=== PATIENT | female | born 1965 | race Caucasian/White ===

== ENCOUNTER 2016-09-10 19:03 | Emergency (ER) | payer OTHER ==
[2016-09-10 19:33] VITALS: BP 126/91; PULSE 88; RESP 16; O2SAT 99
[2016-09-10 20:22] LABS: BASOPHILS % (AUTO) 0.3 % (0-3); MONOCYTES % (AUTO) 7.2 % (4-12); Mean Corpuscular Volume 91.1 fL (81-100); NEUTROPHILS % (AUTO) 58.4 % (40-74); Platelet Count 233 bil/L (150-400)
[2016-09-10 20:46] LABS: Magnesium 1.9 mg/dL (1.6-2.6)
--- NOTE | 2016-09-10 21:02 | ED.REPORT ---
HPI-Abd Pain F 40 and Over Date of Service September 10, 2016 ED Provider: Dr. Balbuena Pt is a healthy 51 y/o female presenting to the ED c/o diffuse right-sided burning abdominal pain onset about 2 days ago. Her pain seems to be relieved by eating. Pt c/o associated nausea. She denies any rash, vomiting, fever, cough, change in appetite, diarrhea, constipation, acid reflux. She has had similar episodes previously that her PCP thought may be related to abdominal muscle spasms. She had a cholecystectomy about 10 years ago. She takes Protonix for GERD and has not missed any doses recently and does not believe this pain is similar to acid reflux. Nursing Notes Stated Complaint: BURNING SENSATION RIGHT SIDE STOMACH,NAUSEA,2 DAYS Chief Complaint: Female Abdominal Pain Nursing Notes Reviewed: Yes Allergies: Coded Allergies: No Known Allergies (Unverified , 09/10/16) General Time Seen by MD: 21:01 Chief Complaint Abdominal pain Hx Obtained From: Patient Arrived By: Walk-in Sudden in Onset?: No Onset Occurred: 2 days ago Symptom Duration: Since onset Progression since Onset: Intermittent Location: : RLQ: RUQ Quality: Burning, Painful Radiation: : Does not radiate Severity: Current: Mild Severity: Maximum: Moderate Relieved by: Eating Similar Sx Previous: No Past Medical History Past Medical History GERD Past Surgical History Cholecystectomy Smoking History Unknown if Ever Smoker Ambulatory Status Independent Review of Systems Denies change in appetite Constitutional: Denies: Chills, Fever Respiratory: Denies: Non-productive cough GI: Reports: Abdominal pain, Nausea, Denies: Anorexia, Constipation, Diarrhea, Vomiting Complete sys rev & neg: except as marked. Physical Exam Vital Signs Vital Signs (First) Date Time Temp Pulse Resp B/P Pulse Ox O2 Delivery O2 Flow Rate FiO2 09/10/16 19:33 37.4 88 16 126/91 99 Initial VS: Reviewed, Vital signs normal Head / Eyes: Atraumatic, Normocephalic, PERRL Neck: Supple, Full range of motion Extremities: Vascular intact, Neuro intact, No swelling, No tenderness Neurologic: Alert, Oriented, Nonfocal Psychiatric: Mood/affect normal, Behavior normal, Normal thought content General/Constitutional: Awake, Alert, No acute distress, Well appearing, Cooperative, Not toxic appearing Respiratory / Chest: Breath sounds NL, Breath sounds = bilat, No respiratory distress, No rales, No rhonchi, No wheezing, No retractions, No stridor Cardiovascular: Heart rate NL, Regular rhythm, Heart sounds NL, No murmurs, Peripheral circulation NL Abdomen: Atraumatic, Soft, No guarding, No rebound, BS normoactive, No distention Mild tenderness over the right mid abdomen No rash Back: Full range of motion, Painless range of motion ENT: Atraumatic, Airway patent, Mucous membranes moist, Pharynx NL Skin: No rash, Warm, Dry, Intact Interpretation & Diagnostics Lab Results Interpretation Result Diagram: 09/10/16 0810 09/10/16 0810 Test 09/10/16 08:10 09/10/16 20:19 White Blood Count 9.0th/mm3 (3.8-10.1) Red Blood Count 4.38mil/mm3 (3.90-5.20) Hemoglobin 14.0g/dL (12.0-15.6) Hematocrit 39.9% (35.0-46.0) Mean Corpuscular Volume 91.1fL (81-100) Mean Corpuscular Hemoglobin 32.0pg (27.0-35.0) Mean Corpuscular Hemoglobin Concent 35.1% (32.0-37.0) Red Cell Distribution Width 12.2% (12.3-15.4) Platelet Count 233bil/L (150-400) Neutrophils (%) (Auto) 58.4% (40-74) Lymphocytes (%) (Auto) 31.8% (14-46) Monocytes (%) (Auto) 7.2% (4-12) Eosinophils (%) (Auto) 2.0% (0-5) Basophils (%) (Auto) 0.3% (0-3) Sodium Level 136mEq/L (134-144) Potassium Level 3.7mEq/L (3.5-5.2) Chloride Level 97mEq/L (97-108) Carbon Dioxide Level 24mmol/L (18-29) Blood Urea Nitrogen 18mg/dL (6-24) Creatinine 0.64mg/dL (0.57-1.00) Estimat Glomerular Filtration Rate 140mL/min (>59) Glucose Level 92mg/dL (60-99) Calcium Level 10.0mg/dL (8.5-10.1) Magnesium Level 1.9mg/dL (1.6-2.6) Total Bilirubin 0.5mg/dL (0.0-1.2) Aspartate Amino Transf (AST/SGOT) 36U/L (0-50) Alanine Aminotransferase (ALT/SGPT) 50U/L (0-32) Alkaline Phosphatase 84U/L (25-150) Total Protein 8.0g/dL (6.4-8.4) Albumin 4.3g/dL (3.4-5.0) Lipase 28U/L (13-60) Urine Color Yellow (YELLOW) Urine Appearance Hazy (CLEAR,HAZY) Urine pH 5.0 (5.0-8.0) Urine Specific [place] 1.025 (1.003-1.035) Urine Protein Negativemg/dL (NEG,TRACE) Urine Glucose (UA) Negativemg/dL (NEGATIVE) Urine Ketones Negativemg/dL (NEGATIVE) Urine Occult Blood Moderate (NEGATIVE) Urine Nitrite Negative (NEGATIVE) Urine Bilirubin Negative (NEGATIVE) Urine Urobilinogen Normalmg/dL (NORMAL) Urine Leukocyte Esterase Negative (NEGATIVE) Urine RBC 0-2/hpf (0-2) Urine WBC 0-5/hpf (0-5) Urine Epithelial Cells Few/hpf (NONE-MOD) Urine Crystals Oxalic acid crystals (NONE Urine Bacteria Few/hpf (NONE-FEW) Urine Hyaline Casts None/lpf (NONE) Urine Granular Casts None seen (NONE SEEN) Urine Waxy Casts None seen (NONE SEEN) Urine Red Blood Cell Casts None seen (NONE SEEN) Urine White Blood Cell Casts None seen (NONE SEEN) Urine Mucus None seen (None Seen) Urine Trichomonas None seen (NONE SEEN) Urine Yeast None (NONE SEEN) Urinalysis Comment None Urine Culture Reflexed Not indicated X-Ray Abdominal Interpretation Moderate stool in the right transverse colon Study: 2 view Interpretation / Wet Read by: Wet read ED physician Re-Eval/Medical Decision Med Decision/Clinical Course 51-year-old presents with burning abdominal pain in the right upper quadrant. She is post cholecystectomy. She does have intermittent heartburn but is on Protonix. There is no skin rash at this point to suggest shingles, but I would not be surprised to see that develop over the next day or two. Her pain seems to be fairly superficial. Labs are basically unremarkable. No indication for advanced imaging. Urine is negative. Single view x-ray shows more than moderate stool in the right colon, and I suspect that her bowel pattern is a chronic low-grade constipation, culminating now in these symptoms. Home with citrate of magnesium and Metamucil to follow. Follow-up with PCP. Re-Evaluation/Progress : Time of Eval: 22:28 Re-Evaluation/Progress Note: Pt rechecked. Informed pt of plan for treatment. Pt understands and agrees with plan for treatment. F/U instructions and RTER warnings given. All questions addressed. Counseled Regarding: Diagnosis, Lab results, Need for follow-up, When/why to return to ED Discharge & Departure Primary Impression: Abdominal pain Abdominal location: unspecified location Qualified Code: R10.9 - Unspecified abdominal pain Disposition: Home Discharge Condition All VS Reviewed: Yes Condition: Stable Patient Instructions: Acute Abdominal Pain (ED) Additional Instructions: There is a moderate amount of solid stool over to the right colon, as we discussed. It would be useful to clean that out and see if that influences your symptoms. Ongoing, I suggest adding Metamucil or similar to your regimen for the indefinite future. Two capsules of generic psyllium twice daily with 12 ounces of fluid each time would be helpful for the long run. Follow up with your doctor in the office. You may follow-up at residency clinic if you need a local physician. Return if worsening pain despite treatment. He may expect some cramps with the magnesium citrate, and then some significant bowel movements later. Referrals: NOPCP (PCP) Scribe Attestation Portions of this note were transcribed by Jevon Morales. I, Dr. Balbuena personally performed the history, physical exam and medical decision-making; I reviewed and confirmed the accuracy of the information in the transcribed note. Signed by Gin Sharma, 09/10/162109 Jesus Balbuena MD September 10, 2016 21:02 JEVON MORALES September 10, 2016 21:10 Corrina Pena September 10, 2016 22:52
[2016-09-10 21:08] LABS: APPEARANCE,URINE HAZY (CLEAR,HAZY); COLOR,URINE YELLOW (YELLOW); OCCULT BLOOD,URINE MODERATE (NEGATIVE); UROBILINOGEN,URINE NORMAL (NORMAL)
[2016-09-10 23:00] VITALS: BP 126/91; PULSE 88; PULSE 89; RESP 16; O2SAT 100; O2SAT 99
--- NOTE | 2016-09-11 09:03 | DRSVH ---
PROCEDURE: X-RAY ABDOMEN, ONE VIEW ([id number]) INDICATIONS: pain right mid abdomen TECHNIQUE: One view of the abdomen acquired. COMPARISON: None. FINDINGS: Surgical changes and devices: Cholecystectomy clips and a single surgical clip projects over the righ t inferior hemipelvis. Bowel: Bowel gas pattern is normal. Soft tissues: No suspicious abdominal calcifications. Visualized solid organ contours appear normal in size. Bones: No suspicious bony lesions. IMPRESSION: No source for abdominal pain identified. Dictated by: Kolton [facility] Interpreted: Kassandra Sparks MD on 09/11/2016 at 8:57 Transcribed by: JHONATHAN on 09/11/2016 at 9:02 Approved by: Kassandra Sparks M.D. on 09/11/2016 at 11:57
== END 2016-09-10 23:01 | disposition home or self-care (01) ==
LOC: SED 19:03
DX: R10.11 Right upper quadrant pain (principal); R11.0 Nausea; K21.9 Gastro-esophageal reflux disease without esophagitis; Z90.49 Acquired absence of other specified parts of digestive tract

== ENCOUNTER 2016-11-16 07:56 | Day surgery (SDC) | payer OTHER ==
[~2016-11-16] VITALS: Ht 162.6 cm; Wt 90.7 kg
[~2016-11-16 07:56] MED LIST: 0.9% Sodium Chloride 1,000 ML IV SCH; DICY10CA56 PO; LEVO100T97 PO; OXYB5TAB PO; PANT40TA2 PO; Sodium Chloride LOK Flush 10 mL Syringe IV PRN; fentaNYL-PF 50 mCg/mL 2 mL Inj IVPUSH PRN
[2016-11-16 08:14] VITALS: BP 108/71; PULSE 63; RESP 16; O2SAT 98
[2016-11-16] MEDS ORDERED: Ondansetron 2 mg/mL 2 mL Inj ONE (08:26)
[2016-11-16] MEDS ORDERED: fentaNYL-PF 50 mCg/mL 2 mL Inj IVPUSH ONE (09:00)
[2016-11-16] MEDS ORDERED: Midazolam 5 mg/mL 10 mL Inj IV ONE (09:00)
[2016-11-16 09:05] VITALS: BP 110/67; PULSE 64; RESP 15; O2SAT 93
[2016-11-16 09:29] VITALS: BP 106/68; PULSE 82; RESP 12; O2SAT 95
[2016-11-16 09:38] VITALS: BP 107/69; PULSE 71; RESP 12; O2SAT 95
[2016-11-16] MEDS ORDERED: 0.9% Sodium Chloride 1,000 ML IV ONE (09:50)
--- NOTE | 2016-11-16 14:52 | ENDO ---
[address] [address] ENDOSCOPY PROCEDURE PATIENT: BRYSON CARRENO : 1965 MR#: [id number] ADMIT: 11/16/2016 JOB ID: [id number] TYPE OF OPERATION: Esophagogastroduodenoscopy (EGD) with biopsy. PREOPERATIVE DIAGNOSIS(ES): Epigastric pain. POSTOPERATIVE DIAGNOSIS(ES): 1. Mild bile reflux. 2. Mild nonerosive gastritis. 3. Small hiatal hernia. ANESTHESIA: Fentanyl 100 mcg, Versed 5 mg IV administered. COMPLICATIONS: None. ESTIMATED BLOOD LOSS: Minimal. DESCRIPTION OF PROCEDURE: After the risks and benefits were explained to the patient, informed consent was obtained. After anesthesia was administered, an upper endoscope was inserted into the mouth, intubating through the esophagus, stomach, second portion of duodenum. Mucosa carefully examined. After the procedure was done, the scope was withdrawn and the procedure was terminated. FINDINGS: Upon inspection of the esophagus, the esophagus was normal, without masses, ulcers, or lesions. Z-line located 40 cm from the incisors. Upon entering the stomach, there was mild bile reflux that was seen. There was also mild nonerosive gastritis. Retroflexion showed a small hiatal hernia. Duodenal bulb, first and second portion were normal. Biopsies were taken at the antrum and body of the stomach. IMPRESSION: 1. Mild bile reflux. 2. Mild nonerosive gastritis. 3. Small hiatal hernia. RECOMMENDATIONS: Await pathology results. Follow up in GI Clinic as needed.
--- NOTE | 2016-11-19 16:16 | PATH ---
SURGICAL PATHOLOGY Attending Physician:Barrera Pena MD CASE STATUS: Signed Out PATIENT NAME: BRYSON CARRENO PID: [id number] : 1965 DATE COLLECTED:11/16/2016 15:22 SPECIMEN: 1: Stomach, Antrum, Biopsy 2: Gastric, Biopsy CLINICAL HISTORY: 1). ANTRUM BIOPSY 2). GASTRIC BODY BIOPSY (RULE OUT H.PYLORI) FINAL DIAGNOSIS: 1. Gastric Antrum, Biopsy: Portions of gastric antral-type mucosa with mild chronic gastritis. No H. pylori organisms identified by H&E stain. Negative for intestinal metaplasia, dysplasia, and malignancy. 2. Gastric Body Biopsy: Portions of gastric body-type mucosa with mild chronic gastritis. No H. pylori organisms identified by H&E stain. Immunohistochemistry studies pending; results will be reported as an addendum. Negative for intestinal metaplasia, dysplasia, and malignancy. ICD10: K29.7 GROSS DESCRIPTION: The specimen is received in two formalin filled containers labeled with the patient's name. 1). The specimen is labeled "antrum" and consists of 2 portions of tissue which aggregate to 0.3 x 0.2 x 0.2 CM. The specimen is entirely submitted in cassette 1A. 2). The specimen is labeled "gastric body" and consists of 2 portions of tissue which aggregate to 0 x 3 x 0.2 x 0.2 CM. The specimen is entirely submitted in cassette 2A. 11/16/2016DC ICD-9 CODES: CPT CODES: 1: 79423 2: 13416, 76421 PROCEDURE/ADDENDA: Immunohistochemistry SPI Interpretation {Not Entered} Results-Comments Immunohistochemical stains are performed to further evaluate for the presence of Helicobacter organisms. The patient tissue is stained with monoclonal antibody to Helicobacter pylori (SP48). Positive and negative controls stain appropriately. Result: The patient tissue shows no staining. Interpretation: The gastric mucosa is negative for Helicobacter pylori by immunohistochemical stains. 2. GASTRIC BODY, BIOPSY: Negative for H. pylori organisms by immunohistochemistry studies. This test was developed and its performance characteristics determined by [facility]. It has not been cleared or approved by the [place]. [place]. Food and Drug Administration. The FDA has determined that such clearance or approval is not necessary. This test is used for clinical purposes. It should not be regarded as investigational or for research. Electronically Signed Out Wendy Samson MD Electronically Signed Out Wendy Samson MD [facility] [address], [place] [address] Technical component performed at [facility], [address], [place], [address]
== END 2016-11-16 23:59 | disposition home or self-care (01) ==
LOC: END 07:56
PROVIDERS: ATTEND Internal Medicine Gastroenterology
DX: K21.9 Gastro-esophageal reflux disease without esophagitis (principal); E03.9 Hypothyroidism, unspecified; K29.50 Unspecified chronic gastritis without bleeding; K44.9 Diaphragmatic hernia without obstruction or gangrene